=== PATIENT | female | born 1945 | race Caucasian/White ===

== ENCOUNTER 2017-10-02 19:31 | Emergency (ER) | payer MEDICARE, OTHER ==
[~2017-10-02] VITALS: Ht 162.6 cm; Wt 80.3 kg
[~2017-10-02 19:31] MED LIST: ALBU3IS INH; ALBU3IS NEB; ALBU90OI6 INH; ALBU90OI61 INH; ALBUIS INH; ALPR.5 PO; ALPR1 PO; AMLO10 PO; ASPI325 PO; ASPI325EC PO; ASPI81CH; ATEN100; ATEN100 PO; AZIT250 PO; BUDE6HFA; BUDE6HFA INH; CITA20 PO; CLOP75; CODACE60 PO; CRUTCH3 USE; CYCL10 PO; DALIRESP500 MCG; DALIRESP500 MCG PO; HYDACE5 PO; LEVO750 PO; LISI20 PO; LORA1 PO; NICO21TP TOP; NITR.4SL SL; NITR.6SL PO; OMEP40CA12 PO; OXYACE5T PO; PRED20 PO; SERT100 PO; SIMV10; TIOT18 INH; Zanaflex2 M1 PO
[2017-10-02 20:33] LABS: BASOPHILS ABSOLUTE AUTO 0.06 K/mm3 (0.00-0.23); BASOPHILS PERCENT AUTO 1 % (0-2); EOSINOPHILS ABSOLUTE AUTO 0.12 K/mm3 (0.00-0.68); EOSINOPHILS PERCENT AUTO 1 % (0-6); Hematocrit 39.5 % (33.0-51.0); Hemoglobin 12.6 g/dL (11.5-16.0); IMMATURE GRAN ABSOLUTE AUTO 0.08 K/mm3 (0.00-0.10); IMMATURE GRAN PERCENT AUTO 1 % (0-1); LYMPHOCYTES ABSOLUTE AUTO 2.34 K/mm3 (0.84-5.20); LYMPHOCYTES PERCENT AUTO 18 % (21-46); MONOCYTES ABSOLUTE AUTO 1.02 K/mm3 (0.16-1.47); MONOCYTES PERCENT AUTO 8 % (4-13); Mean Corpuscular HGB 29.9 pg (26.0-34.0); Mean Corpuscular HGB Conc 31.9 g/dL (31.5-36.5); Mean Corpuscular Volume 94 fL (80-100); Mean Platelet Volume 9.5 fL (9.1-12.4); NEUTROPHILS PERCENT AUTO 72 % (41-73); Platelet Count 213 K/mm3 (150-400); RDW Coefficient Variation 14.8 % (11.7-14.2); RDW Standard Deviation 51.4 fL (35.1-46.3); Red Blood Cell Count 4.22 M/mm3 (3.80-5.20); White Blood Cell Count 12.82 K/mm3 (4.00-11.30)
[2017-10-02 20:57] LABS: International Normalized Ratio 0.99; Prothrombin Time Results 10.2 Sec (9.7-11.5)
[2017-10-02 21:01] LABS: Alanine Aminotransfer (ALT/SGP 15 U/L (12-78); Albumin, Blood 3.5 g/dL (3.4-5.0); Alk Phos 79 U/L (50-136); Anion Gap 6 mmol/L (6-16); Aspartate Aminotrans (AST/SGOT 12 U/L (12-37); Bilirubin, Total 0.3 mg/dL (0.1-1.0); Blood Urea Nitrogen 13 mg/dL (8-24); Bun/Creatinine Ratio 20.5 (12.0-20.0); CO2, Blood 29 mmol/L (21-32); Calcium, Blood 8.7 mg/dL (8.5-10.1); Chloride, Blood 104 mmol/L (98-108); Creatinine, Blood 0.63 mg/dL (0.40-1.00); Globulin, Blood 3.6 g/dL (2.2-4.0); Glomerular Filtration Rate >60 (60-); Glucose, Blood 164 mg/dL (70-99); Potassium, Blood 4.5 mmol/L (3.5-5.5); Sodium, Blood 139 mmol/L (136-145); Total Protein, Blood 7.1 g/dL (6.4-8.2)
== END 2017-10-02 23:38 | disposition left against medical advice (07) ==
LOC: ER 19:31
PROVIDERS: Emergency Medicine
DX: Z53.21 Procedure and treatment not carried out due to patient leaving prior to being seen by health care provider (principal)
CPT/HCPCS: 36415; 80053; 85025; 85610; 85730; 86850; 86900; 86901; 93005; 93010; 99283

== ENCOUNTER → 2017-12-21 | Outpatient (CLI) | payer MEDICARE, OTHER ==
[2017-12-22 14:54] LABS: Stool Occult Bld Immuno 1 Negative (NEGATIVE)
== END ==
LOC: LAB EV 01:00
PROVIDERS: Student in an Organized Health Care Education/Training Program
DX: K92.1 Melena (principal)
CPT/HCPCS: 82274

== ENCOUNTER 2019-07-27 12:31 | Emergency (ER) | payer MEDICARE, OTHER ==
[~2019-07-27] VITALS: Ht 162.6 cm; Wt 75.8 kg
[2019-07-27] MEDS ORDERED: XANAX0.25 MG PO (12:54)
[2019-07-27] MEDS ORDERED: Symbicort 16010.2 GM INH (12:54)
[2019-07-27 13:20] LABS: BASOPHILS ABSOLUTE AUTO 0.04 K/mm3 (0.00-0.23); BASOPHILS PERCENT AUTO 0 % (0-2); EOSINOPHILS ABSOLUTE AUTO 0.06 K/mm3 (0.00-0.68); EOSINOPHILS PERCENT AUTO 0 % (0-6); Hematocrit 41.3 % (33.0-51.0); Hemoglobin 13.3 g/dL (11.5-16.0); IMMATURE GRAN ABSOLUTE AUTO 0.05 K/mm3 (0.00-0.10); IMMATURE GRAN PERCENT AUTO 0 % (0-1); LYMPHOCYTES ABSOLUTE AUTO 1.54 K/mm3 (0.84-5.20); LYMPHOCYTES PERCENT AUTO 11 % (21-46); MONOCYTES PERCENT AUTO 10 % (4-13); Mean Corpuscular HGB 28.9 pg (26.0-34.0); Mean Corpuscular HGB Conc 32.2 g/dL (31.5-36.5); Mean Corpuscular Volume 90 fL (80-100); Mean Platelet Volume 9.6 fL (9.1-12.4); NEUTROPHILS ABSOLUTE AUTO 11.27 K/mm3 (1.96-9.15); NEUTROPHILS PERCENT AUTO 79 % (41-73); Platelet Count 239 K/mm3 (150-400); RDW Standard Deviation 42.8 fL (35.1-46.3); Red Blood Cell Count 4.61 M/mm3 (3.80-5.20); White Blood Cell Count 14.36 K/mm3 (4.00-11.30)
[2019-07-27 13:52] LABS: Alanine Aminotransfer (ALT/SGP 12 U/L (12-78); Albumin, Blood 3.1 g/dL (3.4-5.0); Albumin/Globulin Ratio 0.8 (0.8-1.8); Alk Phos 78 U/L (50-136); Anion Gap 7 mmol/L (6-16); Aspartate Aminotrans (AST/SGOT 15 U/L (12-37); Bilirubin, Total 0.4 mg/dL (0.1-1.0); Blood Urea Nitrogen 8 mg/dL (8-24); Bun/Creatinine Ratio 16.6 (12.0-20.0); CO2, Blood 29 mmol/L (21-32); Calcium, Blood 8.6 mg/dL (8.5-10.1); Chloride, Blood 98 mmol/L (98-108); Creatinine, Blood 0.48 mg/dL (0.40-1.00); Glomerular Filtration Rate >60 (60-); Glucose, Blood 98 mg/dL (70-99); Potassium, Blood 3.3 mmol/L (3.5-5.5); Sodium, Blood 134 mmol/L (136-145); Total Protein, Blood 7.1 g/dL (6.4-8.2)
[2019-07-27] MEDS ORDERED: Ultram50 MG PO (15:34)
[2019-07-27] MEDS ORDERED: Cipro500 MG PO (15:34)
[2019-07-27] MEDS ORDERED: Flagyl500 MG PO (15:34)
== END 2019-07-27 15:46 | disposition home or self-care (01) ==
LOC: ER 12:31
PROVIDERS: Physician Assistant
DX: K52.9 Noninfective gastroenteritis and colitis, unspecified (principal); K59.00 Constipation, unspecified; J44.9 Chronic obstructive pulmonary disease, unspecified; I25.10 Atherosclerotic heart disease of native coronary artery without angina pectoris; I50.9 Heart failure, unspecified; Z79.899 Other long term (current) drug therapy; Z79.51 Long term (current) use of inhaled steroids
CPT/HCPCS: 36415; 74177; 80053; 83690; 85025; 96365-59; 96375; 99284-25; J2405; J2543; Q9967

== ENCOUNTER 2019-08-06 09:24 | Emergency (ER) | payer MEDICARE, OTHER ==
[~2019-08-06] VITALS: Ht 162.6 cm; Wt 64.4 kg
[~2019-08-06 09:24] MED LIST changes: +Cipro500 MG PO; +Flagyl500 MG PO; +Symbicort 16010.2 GM INH; +Ultram50 MG PO; +XANAX0.25 MG PO
[2019-08-06] MEDS ORDERED: ACETAMINOPHEN500 MG PO (10:35)
== END 2019-08-06 11:37 | disposition home or self-care (01) ==
LOC: ER 09:24
DX: S83.015A Lateral dislocation of left patella, initial encounter (principal); J44.9 Chronic obstructive pulmonary disease, unspecified; I25.10 Atherosclerotic heart disease of native coronary artery without angina pectoris; I50.9 Heart failure, unspecified; F17.210 Nicotine dependence, cigarettes, uncomplicated; Z79.899 Other long term (current) drug therapy; Z79.51 Long term (current) use of inhaled steroids; Z79.82 Long term (current) use of aspirin; W18.30XA Fall on same level, unspecified, initial encounter
CPT/HCPCS: 29505; 36415; 96374-59; 96375-59; 99283-25; J2405; J3010

== ENCOUNTER 2020-09-15 17:42 | Inpatient (IN) | payer MEDICARE, OTHER ==
[~2020-09-15] VITALS: Ht 162.6 cm; Wt 149.7 kg
[~2020-09-15 17:42] MED LIST changes: +ACETAMINOPHEN500 MG PO; +SYMBICORT 160-4.6 GM INH; -Symbicort 16010.2 GM INH
[2020-09-15 18:55] LABS: BASOPHILS ABSOLUTE AUTO 0.03 K/mm3 (0.00-0.23); BASOPHILS PERCENT AUTO 0 % (0-2); EOSINOPHILS ABSOLUTE AUTO 0.02 K/mm3 (0.00-0.68); EOSINOPHILS PERCENT AUTO 0 % (0-6); IMMATURE GRAN ABSOLUTE AUTO 0.07 K/mm3 (0.00-0.10); IMMATURE GRAN PERCENT AUTO 1 % (0-1); LYMPHOCYTES ABSOLUTE AUTO 2.15 K/mm3 (0.84-5.20); LYMPHOCYTES PERCENT AUTO 26 % (21-46); MONOCYTES ABSOLUTE AUTO 0.85 K/mm3 (0.16-1.47); MONOCYTES PERCENT AUTO 10 % (4-13); Mean Corpuscular HGB 29.8 pg (26.0-34.0); Mean Corpuscular HGB Conc 32.5 g/dL (31.5-36.5); Mean Corpuscular Volume 92 fL (80-100); Mean Platelet Volume 9.1 fL (9.1-12.4); NEUTROPHILS ABSOLUTE AUTO 5.12 K/mm3 (1.96-9.15); NEUTROPHILS PERCENT AUTO 62 % (41-73); Platelet Count 183 K/mm3 (150-400); RDW Coefficient Variation 13.8 % (11.7-14.2); RDW Standard Deviation 47.2 fL (35.1-46.3); Red Blood Cell Count 4.36 M/mm3 (3.80-5.20); White Blood Cell Count 8.24 K/mm3 (4.00-11.30)
[2020-09-15 19:14] LABS: Alanine Aminotransfer (ALT/SGP 14 U/L (12-78); Albumin, Blood 3.3 g/dL (3.4-5.0); Albumin/Globulin Ratio 0.9 (0.8-1.8); Alk Phos 89 U/L (50-136); Anion Gap 4 mmol/L (6-16); Aspartate Aminotrans (AST/SGOT 16 U/L (12-37); Bilirubin, Total 0.7 mg/dL (0.1-1.0); Blood Urea Nitrogen 13 mg/dL (8-24); Bun/Creatinine Ratio 21.3 (12.0-20.0); CO2, Blood 32 mmol/L (21-32); Calcium, Blood 9.1 mg/dL (8.5-10.1); Chloride, Blood 104 mmol/L (98-108); Creatinine, Blood 0.61 mg/dL (0.40-1.00); Globulin, Blood 3.7 g/dL (2.2-4.0); Glomerular Filtration Rate >60 (60-); Glucose, Blood 93 mg/dL (70-99); Magnesium, Blood 1.8 mg/dL (1.6-2.4); Phosphorus, Blood 2.7 mg/dL (2.5-4.9); Potassium, Blood 3.2 mmol/L (3.5-5.5); Sodium, Blood 140 mmol/L (136-145)
--- NOTE | 2020-09-15 19:20 | NUR ---
1800 Pt arrived to PCU 8, with her daughter in law pushing her wheelchair. Pt is obviously in pain, states on her right side. Short of breath, whimpering slightly with transition from wheelchair to the bed. Lung sounds are crackles in bases, fine on ispiration. She is wearing home oxygen at 2 l/min. continuous oximetry set up, spo2 noted in 90s. Peripheral IV started, security monitor applied and heart rhythm verified to be sinus rhythm 91 bpm per Sarahi tele school bus monitor. medicated for nausea with zofran, given oxycodone for pain, and IV fluids were started per orders. Pt was assisted to stand for weight after pain medication had given her some relief. She was given a dinner tray as well, which she wanted as her nausea had abated.
[2020-09-15 21:49] LABS: SARS-Cov-2 (COVID-19) PCR, MMC NEGATIVE (NEGATIVE)
[2020-09-16 03:55] LABS: BASOPHILS ABSOLUTE AUTO 0.01 K/mm3 (0.00-0.23); BASOPHILS PERCENT AUTO 0 % (0-2); EOSINOPHILS PERCENT AUTO 0 % (0-6); Hemoglobin 12.2 g/dL (11.5-16.0); IMMATURE GRAN ABSOLUTE AUTO 0.05 K/mm3 (0.00-0.10); IMMATURE GRAN PERCENT AUTO 1 % (0-1); LYMPHOCYTES ABSOLUTE AUTO 0.36 K/mm3 (0.84-5.20); LYMPHOCYTES PERCENT AUTO 9 % (21-46); MONOCYTES ABSOLUTE AUTO 0.06 K/mm3 (0.16-1.47); MONOCYTES PERCENT AUTO 2 % (4-13); Mean Corpuscular HGB 29.8 pg (26.0-34.0); Mean Corpuscular HGB Conc 32.1 g/dL (31.5-36.5); Mean Corpuscular Volume 93 fL (80-100); Mean Platelet Volume 9.3 fL (9.1-12.4); NEUTROPHILS ABSOLUTE AUTO 3.51 K/mm3 (1.96-9.15); NEUTROPHILS PERCENT AUTO 88 % (41-73); Platelet Count 149 K/mm3 (150-400); RDW Coefficient Variation 13.8 % (11.7-14.2); Red Blood Cell Count 4.09 M/mm3 (3.80-5.20); White Blood Cell Count 3.99 K/mm3 (4.00-11.30)
[2020-09-16 04:16] LABS: Anion Gap 4 mmol/L (6-16); Blood Urea Nitrogen 12 mg/dL (8-24); Bun/Creatinine Ratio 24.1 (12.0-20.0); CO2, Blood 30 mmol/L (21-32); Calcium, Blood 8.7 mg/dL (8.5-10.1); Chloride, Blood 102 mmol/L (98-108); Glomerular Filtration Rate >60 (60-); Glucose, Blood 199 mg/dL (70-99); Potassium, Blood 3.7 mmol/L (3.5-5.5); Sodium, Blood 136 mmol/L (136-145)
--- NOTE | 2020-09-16 06:05 | NUR ---
shift summary pt rested well thorugh night. alert and oriented, able to make needs known. cooperative with plan of care. sats >90% on 5lnc, did bump her up from her regular 2lnc as she was having some pain and not taking deep breaths. flutter provided to help with her breathing, and frequent breating tx were given per pt request. pain given x3 - see emar. tele nsr with no c/o chest pain. covid test negative, sputum micro resulted - see results. sba to bsc - voiding adequately, no bm. vss. call light iwthin reach, bed in lowest position. will continue to monitor.
--- NOTE | 2020-09-16 09:47 | NUR ---
Dr Mak was here to see the patient; explained that pt went into atrial fibrillation, rate controlled, around 2200 last night, and it was about 1-2 hours later that the RN noted her oxygen needs had increased. They continued to increase until she was needing 5 l/min of o2. This morning the pt has still been in atrial fibrillation, but she is weaned down to 2 l/min of oxygen at this time. She states that her appetite has improved with pain control. Doctor states that the pt will be changed to med with tele status.
--- NOTE | 2020-09-16 10:43 | NUR ---
75 year old femal admitted to the hospital for Community Aquired Pneumonia. Pt's medical history and comorbidities include: Advanced COPD, PNA, HTN, General Anxiety Disorder, Coranary Artherosclerosis, Hyperlipidemia, GERD, Osteoporosis, and CHF. Pt resting in bed and is A&OX 4. Pt denies pain and nausea. Pt reports current regimen is managing her pain. Pt reports her breathing has improved. Engaged in therapeutic conversation regarding advanced care planning. Pt reports living alone and at baseline is independent of her ADLs. Pt does report when feeling ill she needs assistance with some activities such as bathing, dressing, and cleaning. She reports her son and daughter in law plan to move her cloer to where they live or possibly move her in with them. Pt is of Jewish carlotta and expresses wishes to see a senior functional analyst during her hospital stay. Gentle education given on disease process of her COPD including trajectory. Discussed the importance of developing multiple plans with her PCP as disease progresses. Discussed current code status and listened as Pt reports not wanting to be intubated. Pt states she does not want chest compressions, intubation, or defibrilation. Pt states "If it's my time, then let me go". Pt's wishes are to be DNR. Continued therapeutic listening. Pt reports having 2 living sons. Pt's oldest son passes away when he was 38 years old. Continued therapeutic listening. Pt agreeable for this RN to return and complete a POLST with her. Pt confirms her healthcare proxy being her daughter in law Jessie. Recieved verbal permission from Pt to call Jessie and discuss conversation that took place. Called and spoke with Jessie. Provided update on plan of care and relayed conversation, including her wishes for DNR, plan to complete a POLST, and planning for the future. Jessie expresses appreciation of call and is in agreement of Pt's wishes. Jessie inquires about potential need for higher level of care. Deferred these questions for Caremanager to address. Jessie expresses appreciation of call and reports no other concerns at this time. Left message with [facility] Sarah regarding family's questions. Palliative Care will remain available.
--- NOTE | 2020-09-16 11:02 | NUR ---
Late Entry from previous visit note. Called and spoke with Dr Mak. Placed code status order for DNR per V/O from Dr Mak.
--- NOTE | 2020-09-16 12:59 | NUR ---
Upon receiving a referral from Palliative Care RN Hamilton Newton, I visit patient. Patient speaks about her fall, her injured ribs and the pneumonia that insued. Patient then talks at length about her Taoism [employer] carlotta. 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 She reminisces about the life lessons she learned from him and how his words and life still guide her to this day. She talks about the of her son in , the divorce she went through after 27yrs and the reasons why she has struggled to trust again. I normalize her experience, reinforce helpful attitudes and practices and provide therapeutic listening, pastoral camp head counselor and prayer. Patient is quite tearful during the prayer and states that the prayer was very meaningful to her. I will continue to remain available to patient and fmaily.
--- NOTE | 2020-09-16 13:37 | NUR ---
F/U visit this afternoon. Pt just finishing breathing treatment. Pt agreeable to complete POLST. Educated on life sustaining measures including risk factors and implications of CPR. Educated on each section needing to be completed. Assisted Pt with completing POLST per her request. Pt's wishes are for DNR and Limited Treatment. Pt reports no other concerns at this time. Spoke with Primary RN Ileana and discussed case. Pt to transfer to medical floor. Palliative Care will remain available.
--- NOTE | 2020-09-16 14:39 | NUR ---
Telephone report given to Eva Thao RN, at this time. Pt will be transferred by wheelchair to medical floor, room 354. I spoke with Jessie, the pt's daughter in law, to let her know that the pt will be tranferred to the new room.
--- NOTE | 2020-09-16 18:12 | NUR ---
PT AOX4 AND COOPERATIVE OF CARE. PT WORKED WELL WITH PHYSICAL THERAPY AND OT TODAY. NOT DISTRESS NOTED AND UP IN CHAIR FOR HER MEALS. PT HAS CALL LIGHT WITHIN REACH. WILL CONINTUE TO MONITOR.
[2020-09-17 05:01] LABS: BASOPHILS PERCENT AUTO 0 % (0-2); EOSINOPHILS PERCENT AUTO 0 % (0-6); Hematocrit 36.5 % (33.0-51.0); Hemoglobin 11.7 g/dL (11.5-16.0); IMMATURE GRAN ABSOLUTE AUTO 0.17 K/mm3 (0.00-0.10); IMMATURE GRAN PERCENT AUTO 2 % (0-1); LYMPHOCYTES ABSOLUTE AUTO 0.58 K/mm3 (0.84-5.20); LYMPHOCYTES PERCENT AUTO 7 % (21-46); MONOCYTES ABSOLUTE AUTO 0.59 K/mm3 (0.16-1.47); MONOCYTES PERCENT AUTO 7 % (4-13); Mean Corpuscular HGB 29.8 pg (26.0-34.0); Mean Corpuscular HGB Conc 32.1 g/dL (31.5-36.5); Mean Corpuscular Volume 93 fL (80-100); Mean Platelet Volume 9.8 fL (9.1-12.4); NEUTROPHILS ABSOLUTE AUTO 7.65 K/mm3 (1.96-9.15); NEUTROPHILS PERCENT AUTO 85 % (41-73); Platelet Count 187 K/mm3 (150-400); RDW Standard Deviation 47.6 fL (35.1-46.3); Red Blood Cell Count 3.93 M/mm3 (3.80-5.20); White Blood Cell Count 8.99 K/mm3 (4.00-11.30)
[2020-09-17 05:28] LABS: Alanine Aminotransfer (ALT/SGP 10 U/L (12-78); Albumin/Globulin Ratio 0.9 (0.8-1.8); Alk Phos 71 U/L (50-136); Anion Gap 2 mmol/L (6-16); Aspartate Aminotrans (AST/SGOT 8 U/L (12-37); Bilirubin, Total 0.1 mg/dL (0.1-1.0); Blood Urea Nitrogen 14 mg/dL (8-24); Bun/Creatinine Ratio 25.8 (12.0-20.0); CO2, Blood 32 mmol/L (21-32); Calcium, Blood 8.9 mg/dL (8.5-10.1); Chloride, Blood 105 mmol/L (98-108); Creatinine, Blood 0.54 mg/dL (0.40-1.00); Globulin, Blood 3.4 g/dL (2.2-4.0); Glomerular Filtration Rate >60 (60-); Glucose, Blood 168 mg/dL (70-99); Magnesium, Blood 1.9 mg/dL (1.6-2.4); Phosphorus, Blood 3.2 mg/dL (2.5-4.9); Potassium, Blood 3.8 mmol/L (3.5-5.5); Sodium, Blood 139 mmol/L (136-145); Total Protein, Blood 6.4 g/dL (6.4-8.2)
--- NOTE | 2020-09-17 06:43 | NUR ---
SHIFT SUMMARY: PATIENT IS A&OX3-4, ABLE TO MAKE NEEDS KNOWN, CALLING FOR ASSIST OOB TO THE BATHROOM OR BSC WITH WALKER AND STAND BY ASSIST OF 1. VSS, PAIN IS WELL CONTROLLED WITH PRN NORCO. BED ALARM IS ON FOR SAFETY.
--- NOTE | 2020-09-17 11:27 | NUR ---
Pt resting in bed upon arrival. Pt tearful intermittently throughout visit as she expresses concerns regarding losing her independence. Validated concerns and continued therapeutic listening. Pt expresses appreciation of visit and reports no other concerns at this time. Spoke with Dr Lisa and discussed case. Dr Lisa signs POLST. Obtained copies of POLST and return original to Pt. Placed original POLST in Pt's belongings bag and instructed to hang on refrigerator at home. Delivered copy to [employer] Vice President Lending Sarah and delivered copy to medical records. Palliative Care will remain available if called upon.
--- NOTE | 2020-09-17 18:09 | NUR ---
Discharge Plan:Jessie (daughter in-law) will be the contact for transportation at time of discharge . Family to bead picker prescriptions at pharmacy. Orders for hospital bed, shower chair, and neb equipment sent to [facility] [place] and are set to be delivered tonight. Update 09/17/2020 1802: Per chart review with Dr. Lisa this am, pt. not quite ready for discharge. Anticipating discharge likely tomorrow. Reviewed discharge planning with patient's daughter in-law Jessie. Pt. needing shower chair, hospital bed, and nebulizer at home. Pt. will be living with son and daughter in-law in [place]. All orders sent to [facility] [place] and confirmed that the equipment will be delivered tonight. Albuterol Rx. sent to pharmacy by nurse caring for Liz at [facility]. I have provided Jessie with contact numbers for [place] [facility] in case of concerns or questions. Jessie was grateful for the assistance provided to her by physician, nurses and other staff. No further concerns or questions at this time.
--- NOTE | 2020-09-18 05:49 | NUR ---
SHIFT SUMMARY PT PLEASANT AND COOPERATIVE THROUGHOUT THE NIGHT. CONTINUES TO HAVE RIB PAIN, MEDICATED WITH 1 TAB NORCO X 2 THIS EVENING. RESPIRATIONS ARE EVEN AND UNLABORED. LUNG SOUNDS DIMINISHED WITH SLIGHT CRACKLES. PT ON 2 L O2 VIA NC. O2 SATS REMAINED ABOVE 90% ON THE 2 L. TELEMETRY SR 68. NO ACUTE CHANGES THIS EVENING. VITAL SIGNS STABLE. WILL CONTINUE TO MONITOR.
[2020-09-18] MEDS ORDERED: ELIQUIS2.5 MG PO (09:40)
[2020-09-18] MEDS ORDERED: METO50ER PO (09:40)
[2020-09-18] MEDS ORDERED: SPIR25 PO (09:41)
[2020-09-18] MEDS ORDERED: HYDR1TAB94 PO (09:41)
[2020-09-18] MEDS ORDERED: MIRT15 PO (09:41)
[2020-09-18] MEDS ORDERED: CEFD300 PO (09:42)
[2020-09-18] MEDS ORDERED: PRED20 PO (09:42)
[2020-09-18] MEDS ORDERED: AZIT250 PO (09:42)
--- NOTE | 2020-09-18 12:15 | NUR ---
Discharge Summary A/Ox4, pleasant and cooperative. Up with 1p SBA. Minimal pain to R rib. C/O minimal GOMEZ, medicated for both prior to discharge. Discharging to home with HH. [id number] for transport. Reviewed discharge paperwork with patient and daughter in law at the bedside. Questions answered appropriately. Copy given. IV removed. Personal belongings sent home. Escorted by ARMATURE BALANCER via w/c.
== END 2020-09-18 11:36 | disposition home health service (06) | DRG 191 ==
LOC: PCU 17:42 → MEDS 09-16 15:08
PROVIDERS: Hospitalist; ADMIT Internal Medicine
DX: J44.1 Chronic obstructive pulmonary disease with (acute) exacerbation (principal); S22.41XA Multiple fractures of ribs, right side, initial encounter for closed fracture; J98.11 Atelectasis; J90 Pleural effusion, not elsewhere classified; J96.11 Chronic respiratory failure with hypoxia; W18.30XA Fall on same level, unspecified, initial encounter; I10 Essential (primary) hypertension; F17.210 Nicotine dependence, cigarettes, uncomplicated; I11.0 Hypertensive heart disease with heart failure; I50.9 Heart failure, unspecified; F41.1 Generalized anxiety disorder; Z20.822 Contact with and (suspected) exposure to COVID-19; I25.10 Atherosclerotic heart disease of native coronary artery without angina pectoris; I48.0 Paroxysmal atrial fibrillation; E87.6 Hypokalemia; K21.9 Gastro-esophageal reflux disease without esophagitis; E78.5 Hyperlipidemia, unspecified; M81.0 Age-related osteoporosis without current pathological fracture; Z95.5 Presence of coronary angioplasty implant and graft; Z95.1 Presence of aortocoronary bypass graft; Z98.890 Other specified postprocedural states; Z71.6 Tobacco abuse counseling; Z99.81 Dependence on supplemental oxygen; Z88.8 Allergy status to other drugs, medicaments and biological substances
CPT/HCPCS: 36415; 71101; 71250; 80048; 80053; 83605; 83735; 83880; 84100; 84145; 85025; 87070; 87205; 94640; 94760; 94762; 97116; 97162; 97165; 97530; 97535; 99283-25; A9270; J0456; J0696; J1650; J2405; J2930; J3480; J7042; J7050; U0004

== ENCOUNTER 2021-06-08 10:16 | Emergency (ER) | payer OTHER ==
[~2021-06-08] VITALS: Ht 162.6 cm; Wt 59.4 kg
[~2021-06-08 10:16] MED LIST changes: +CEFD300 PO; +ELIQUIS2.5 MG PO; +HYDR1TAB94 PO; +METO50ER PO; +MIRT15 PO; +SPIR25 PO
[2021-06-08 11:01] LABS: BASOPHILS ABSOLUTE AUTO 0.03 K/mm3 (0.00-0.23); BASOPHILS PERCENT AUTO 1 % (0-2); EOSINOPHILS ABSOLUTE AUTO 0.01 K/mm3 (0.00-0.68); EOSINOPHILS PERCENT AUTO 0 % (0-6); Hematocrit 41.6 % (33.0-51.0); Hemoglobin 13.3 g/dL (11.5-16.0); IMMATURE GRAN ABSOLUTE AUTO 0.06 K/mm3 (0.00-0.10); IMMATURE GRAN PERCENT AUTO 1 % (0-1); LYMPHOCYTES ABSOLUTE AUTO 1.36 K/mm3 (0.84-5.20); LYMPHOCYTES PERCENT AUTO 21 % (21-46); MONOCYTES ABSOLUTE AUTO 0.57 K/mm3 (0.16-1.47); MONOCYTES PERCENT AUTO 9 % (4-13); Mean Corpuscular HGB 30.9 pg (26.0-34.0); Mean Corpuscular Volume 97 fL (80-100); Mean Platelet Volume 10.5 fL (9.1-12.4); NEUTROPHILS ABSOLUTE AUTO 4.54 K/mm3 (1.96-9.15); NEUTROPHILS PERCENT AUTO 69 % (41-73); Platelet Count 181 K/mm3 (150-400); RDW Coefficient Variation 14.6 % (11.7-14.2); RDW Standard Deviation 51.5 fL (35.1-46.3); White Blood Cell Count 6.57 K/mm3 (4.00-11.30)
[2021-06-08 11:13] LABS: Alanine Aminotransfer (ALT/SGP 10 U/L (12-78); Albumin, Blood 2.6 g/dL (3.4-5.0); Albumin/Globulin Ratio 0.8 (0.8-1.8); Alk Phos 53 U/L (50-136); Anion Gap 7 mmol/L (6-16); Aspartate Aminotrans (AST/SGOT 18 U/L (12-37); Bilirubin, Total 0.7 mg/dL (0.1-1.0); Blood Urea Nitrogen 12 mg/dL (8-24); Bun/Creatinine Ratio 21.9 (12.0-20.0); CO2, Blood 32 mmol/L (21-32); Calcium, Blood 8.1 mg/dL (8.5-10.1); Chloride, Blood 103 mmol/L (98-108); Creatinine, Blood 0.55 mg/dL (0.40-1.00); Globulin, Blood 3.4 g/dL (2.2-4.0); Glomerular Filtration Rate >60 (60-); Glucose, Blood 79 mg/dL (70-99); Potassium, Blood 3.4 mmol/L (3.5-5.5); Sodium, Blood 142 mmol/L (136-145)
[2021-06-08 11:27] LABS: Source, Urine Clean Catch
[2021-06-08 11:27] LABS: Influenza A, PCR NEGATIVE (NEGATIVE); Influenza B, PCR NEGATIVE (NEGATIVE); Resp Syncytial Virus, PCR NEGATIVE (NEGATIVE); SARS-Cov-2 (COVID-19) PCR, MMC POSITIVE (NEGATIVE)
[2021-06-08 11:32] LABS: Appearance, Urine Clear (Clear); Blood, Urine Neg (Neg); Color, Urine Amber (P-Yellow); Glucose Qualitative, Urine Neg (Neg); Ketones, Urine 2+ (Neg); Leukocyte Esterase, Urine 1+ (Neg); Nitrite, Urine Neg (Neg); Protein, Urine 2+ (Neg); Urobilinogen, Urine 2+ (Normal)
[2021-06-08 12:01] LABS: Bilirubin, Urine 1+ (Neg)
[2021-06-08 12:04] LABS: Red Blood Cells, Urine Rare /hpf (0-2); Squamous Epithelial Cells Few /hpf (Few); White Blood Cells, Urine 0-2 /hpf (0-5)
[2021-06-08 12:05] LABS: Bacteria Rare /hpf; Mucus Light (0-Heavy)
== END 2021-06-08 13:01 | disposition home or self-care (01) ==
LOC: ER 10:16
PROVIDERS: Emergency Medicine
DX: U07.1 COVID-19 (principal); I10 Essential (primary) hypertension; J44.9 Chronic obstructive pulmonary disease, unspecified; E78.5 Hyperlipidemia, unspecified; K21.9 Gastro-esophageal reflux disease without esophagitis; F17.210 Nicotine dependence, cigarettes, uncomplicated; Z79.899 Other long term (current) drug therapy
CPT/HCPCS: 0241U; 71045; 80053; 81001; 85025; 87086; 99285-25

== ENCOUNTER 2022-02-23 09:28 | Inpatient (IN) | payer OTHER ==
[2022-02-23] MEDS ORDERED: PRAV20 PO (13:12)
[2022-02-23] MEDS ORDERED: LOSA50 PO (13:12)
[2022-02-23] MEDS ORDERED: ALPR.25 PO ×2 (17:14→17:15)
[2022-02-23] MEDS ORDERED: ELIQUIS5 M2 PO (17:15)
[2022-03-08] MEDS ORDERED: FERSU300 PO (11:27)
[2022-03-08] MEDS ORDERED: FOLI1 PO (11:27)
[2022-03-08] MEDS ORDERED: BISA10S PR (11:27)
[2022-03-08] MEDS ORDERED: PANT40 PO (11:28)
[2022-03-08] MEDS ORDERED: MIRALAX17 GM PO (11:28)
[2022-03-08] MEDS ORDERED: MELATONIN5 M1 PO (11:28)
[2022-03-08] MEDS ORDERED: SERT50 PO (11:28)
== END 2022-03-08 14:05 | DRG 193 ==
DX: J10.08 Influenza due to other identified influenza virus with other specified pneumonia (principal); I50.33 Acute on chronic diastolic (congestive) heart failure; J96.11 Chronic respiratory failure with hypoxia; Z28.21 Immunization not carried out because of patient refusal; Z20.822 Contact with and (suspected) exposure to COVID-19; Z66 Do not resuscitate; J44.1 Chronic obstructive pulmonary disease with (acute) exacerbation; J44.0 Chronic obstructive pulmonary disease with (acute) lower respiratory infection; I11.0 Hypertensive heart disease with heart failure; I48.0 Paroxysmal atrial fibrillation; E83.42 Hypomagnesemia; D50.9 Iron deficiency anemia, unspecified; F17.210 Nicotine dependence, cigarettes, uncomplicated; F41.1 Generalized anxiety disorder; I25.10 Atherosclerotic heart disease of native coronary artery without angina pectoris; E78.5 Hyperlipidemia, unspecified; K21.9 Gastro-esophageal reflux disease without esophagitis; M81.0 Age-related osteoporosis without current pathological fracture; Z99.81 Dependence on supplemental oxygen; Z95.1 Presence of aortocoronary bypass graft; Z98.890 Other specified postprocedural states; Z98.891 History of uterine scar from previous surgery; Z88.8 Allergy status to other drugs, medicaments and biological substances; Z79.899 Other long term (current) drug therapy

== ENCOUNTER → 2022-04-10 | Outpatient (CLI) | payer OTHER ==
[~2022-04-10] MED LIST changes: +ALPR.25 PO; +BISA10S PR; +ELIQUIS5 M2 PO; +FERSU300 PO; +FOLI1 PO; +LOSA50 PO; +MELATONIN5 M1 PO; +MIRALAX17 GM PO; +PANT40 PO; +PRAV20 PO; +SERT50 PO
[2022-04-11 09:48] LABS: Stool Occult Blood Guaiac 1 Neg (Neg)
== END | disposition home or self-care (01) ==
LOC: EDSTATUS 10:07 → LAB UVN 14:30
PROVIDERS: Family Medicine
DX: D50.9 Iron deficiency anemia, unspecified (principal)
CPT/HCPCS: 82270

== ENCOUNTER → 2022-05-09 | Outpatient (CLI) | payer OTHER ==
[2022-05-09 09:34] LABS: Performing Lab SYMBIODX; Test Name FLOW
== END ==
LOC: LAB UVN 09:10 → EDSTATUS 10:28
PROVIDERS: Family Medicine
DX: D64.9 Anemia, unspecified (principal); I48.91 Unspecified atrial fibrillation; Z87.11 Personal history of peptic ulcer disease; Z79.01 Long term (current) use of anticoagulants
CPT/HCPCS: 82525; 88184; 88185